=== PATIENT | male | born 1940 | race Caucasian/White ===

== ENCOUNTER 2017-03-20 20:44 | Observation (INO) | payer MEDICARE, OTHER ==
--- NOTE | ~2017-03-20 | DS ---
Discharge Summary [facility] [address] [place]. [address] NAME: HENRIK MANZO : 40 STATUS : DIS Ielana PAT#: [id number] AGE: 76 ADM/REG DATE : 03/20/17 MR#: [id number] REPORT SERV DATE: 03/23/17 DICTATED BY: DATE: REPORT STATUS : Draft TRANSCRIBED BY: MODL DATE: 03/21/17 ADMISSION DATE: 03/20/2017 DISCHARGE DATE: 03/21/2017 The patient was admitted to the [facility]. CONSULTANTS: Dr. Jane Seo. DISCHARGE DIAGNOSES: 1. 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 Possibly due to trauma. 2. Fall with head trauma several weeks ago. No evidence of acute CVA, bleed, mass, etc. 3. Hypertension, controlled. 4. History of cardiac ablation. 5. History of left carotid endarterectomy. 6. History of hyperthyroidism, status post ablation and subsequent hypothyroidism, on replacement. 7. Remote history of tobacco. 8. Pancytopenia with macrocytosis, for outpatient followup. IMAGING: Included: 1. A brain CT without contrast on 03/20 for diplopia, showing unremarkable noncontrast head CT with no acute intracranial pathology. 2. MRI of the brain without contrast shows no evidence of acute vascular injury. Evidence of mild amount of nonspecific gliosis in the right and left centrum semiovale. Atrophy pattern identified, which is stable. Empty sella incidentally noted. Nothing seen to suggest aneurysm or mass in the sella or compression of the exiting nerves and the optic canals, suprasellar space at the chiasm, or optic tracts to explain diplopia. 3. MRA of the head without contrast, 03/21, atherosclerotic changes present in the carotid siphons, but no evidence of aneurysm or luminal stenosis. 4. Carotid artery Dopplers on 03/21 shows finding compatible with category 1 disease involving cervical portions of right and left internal carotid arteries. Vertebral arteries patent with antegrade flow. PERTINENT LABORATORIES: Pancytopenia noted with white blood cell count 3.4, hemoglobin 11.3, hematocrit 33, platelets 134. Creatinine values ranging from 1.2 to 1.4. B12 of 338. Troponin times multiple was normal. Folate 7.2. TSH 0.903. Hemoglobin A1c 5.3. BRIEF HISTORY: For full details, please see the previously dictated history of present illness by Dr. Ani Tobar. This is a 76-year-old white male, who presented to the emergency department with double vision for several weeks. In the beginning of March, he fell out of bed during a nightmare and three days after this, developed double vision. At that time, he came to the ER, where a CT of the brain was done, which was unremarkable, but his symptoms were not improving, so he saw his title examiner, Dr. De Guzman. His impression was that the double vision was not related to the eye and so referred him to see primary care physician, Dr. Gabriela Izquierdo, who recommended that the patient have an outpatient MRI as Discharge Summary [address] [address] NAME: HENRIK MANZO : 40 STATUS : DIS Ileana PAT#: [id number] AGE: 76 ADM/REG DATE : 03/20/17 MR#: [id number] REPORT SERV DATE: 03/23/17 DICTATED BY: DATE: REPORT STATUS : Draft TRANSCRIBED BY: MODL DATE: 03/21/17 well as bilateral carotid ultrasound. Both were scheduled for next week, but the patient reported that he had worsening of his diplopia to the point that he could not walk because of difficulties with perception, and so the patient came to the emergency department for evaluation and admission. HOSPITAL COURSE: The patient was admitted to [address] [place] [address], and labs were obtained to evaluate for cause of possible cranial nerve palsy. He also was sent for an MRI and MRA of the brain as well as carotid ultrasounds in order to attempt to determine the etiology of the patient's symptoms. There was no evidence of a mass or any type of aneurysm or traumatic sequelae noted on carotid Dopplers or MRI/MRA of the brain and neck. The patient was seen by Neurology, whose impression was that most likely diagnosis is a cranial nerve 3 versus 4 palsy, possibly related to the head trauma sustained in early March. No other causes for cranial nerve palsy could be identified this admission. The patient is recommended to try an eye patch to assist with mobility and to follow up with his title examiner for prism glasses. Other chronic medical issues were stable this admission. DISCHARGE DISPOSITION: To home with supportive family. The patient should exercise fall precautions and should not drive currently. He has no specific dietary restrictions. He will need to follow up with title examiner, Dr. De Guzman, within the week and will need to see his primary care provider, Dr. Gabriela Izquierdo within the next one to two weeks for hospital followup appointment. DISCHARGE MEDICATIONS: 1. Eliquis 5 mg p.o. twice a day. 2. Coenzyme Q10, 100 mg p.o. q.h.s. 3. Colace 100 mg p.o. q.a.m. 4. Zantac 300 mg p.o. twice a day. 5. Levothyroxine 150 mcg p.o. q.a.m. 6. Klor-Con 10 mEq p.o. q.a.m. 7. Simvastatin 40 mg p.o. q.h.s. 8. Sublingual nitroglycerin 0.4 mg as needed for chest pain. 9. Lisinopril/HCTZ 10/12.5 mg one tablet p.o. q.a.m. Twenty-five minutes was spent in completion of this observation discharge. [facility]/MARITZA Jose Batista M.D. Discharge Summary [address] [address] NAME: HENRIK MANZO : 40 STATUS : DIS Ileana PAT#: [id number] AGE: 76 ADM/REG DATE : 03/20/17 MR#: [id number] REPORT SERV DATE: 03/23/17 DICTATED BY: DATE: REPORT STATUS : Draft TRANSCRIBED BY: MARITZA DATE: 03/21/17 / [id number] CC: Ray Yates Lisa M Aaron Thompson, JELANI
--- NOTE | ~2017-03-20 | CN ---
Consultation Report [facility] [address] [place]. [address] NAME: HENRIK MANZO : 40 STATUS : ADM Ileana PAT#: [id number] AGE: 76 ADM/REG DATE : 03/20/17 MR#: [id number] REPORT SERV DATE: 03/21/17 DICTATED BY: DATE: REPORT STATUS : Draft TRANSCRIBED BY: MODL DATE: 03/21/17 NEUROLOGY CONSULTATION DATE OF CONSULTATION: 03/21/2017 REASON FOR CONSULT: Diplopia. HISTORY OF PRESENT ILLNESS: This is a 76-year-old male, presented to [facility] on 03/20/2017, secondary to double vision, appeared to be worse on 03/20/2017, with some photosensitivity. The patient reports that the symptom has been ongoing for the past three weeks after falling out of the bed, secondary to a nightmare. The patient reports that the symptoms started about two to three days after the head trauma, but otherwise denies any dysarthria, dysphagia, language difficulties, or focal weakness. The patient reports that the symptom has persisted and reports the symptom to be constant. It can be improved with particular head movement as well as closing one eye. He reports that the diplopia resolved after closing one eye, but returns when patient opens both eyes. The patient denies any particular worsening of diplopia with movement of eyes just toward the either direction. Reports double vision appeared to be skewed. Otherwise, denies any difficulties with vision acuity. The patient was previously evaluated by Dr. De Guzman, [employer] fscm developer, who denies any ocular issues. The patient denies similar events prior to the fall and reports after onset of diplopia, the patient has experienced vertical type of symptoms especially while sitting in the car, as well as difficulty ambulating, secondary to dizzy vertical type of sensation, as well as diplopia. The patient denies recent illness, fever, chills, nausea, vomiting, chest pain, or shortness of breath and denies any other changes in medication. REVIEW OF SYSTEMS: The patient's review of systems are otherwise negative except for those mentioned in the HPI. PAST MEDICAL HISTORY: Significant for hypertension, cardiac ablation for history of arrhythmia, the patient does have a history of left carotid endarterectomy, secondary to previous 94% blockage in the carotid artery, as well as history of previous hyperthyroidism treated with thyroid iodine ablation and is currently on Synthroid, the patient does have a history of hypertension. No previous stroke or heart attacks. No previous history of diplopia prior to fall. No recent history of a respiratory distress or illness. ALLERGIES: THE PATIENT REPORTS ALLERGY TO PENICILLIN. HOME MEDICATIONS: Eliquis, Coenzyme Q10, Colace, Synthroid, lisinopril, hydrochlorothiazide, nitroglycerin, potassium, Zantac, and Zocor. SOCIAL HISTORY: The patient denies current tobacco, alcohol, or recreational drug usage. The patient quit smoking in 1980. Consultation Report [place] [id number] [place]. [address] NAME: HENRIK MANZO : 40 STATUS : ADM Ilaena PAT#: [id number] AGE: 76 ADM/REG DATE : 03/20/17 MR#: [id number] REPORT SERV DATE: 03/21/17 DICTATED BY: DATE: REPORT STATUS : Draft TRANSCRIBED BY: MARITZA DATE: 03/21/17 REVIEW OF SYSTEMS: Again, review of systems negative except for those mentioned in the HPI. FAMILY HISTORY: No reported family history of a diplopia was otherwise noted. PHYSICAL EXAMINATION: VITAL SIGNS: The patient was noted to have vital signs with T-max of 97.7, heart rate of 50 to 66, respirations of 16 to 18, and blood pressure of 126 to 156/62 to 70. GENERAL: The patient is well-developed, well-nourished, in no acute distress. CARDIOVASCULAR: Regular rate and rhythm. No carotid bruits were otherwise auscultated. PULMONARY: Clear to auscultation bilaterally. NEUROLOGIC: Generally, the patient is alert, oriented to person, place, year, and month. Follows simple and 2-step commands. No dysarthria. No aphasia. Intact registration and recall. Cranial nerves 2 through 12, pupils equal, round, and reactive to light. The patient was noted to have intact horizontal eye movement. No nystagmus was seen. No clear dysconjugate gaze was noted with vertical eye movement. At time of evaluation, the patient denies any worsening of diplopia with either direction, but appeared to be slightly worse toward the left on examination. The patient otherwise was noted to have symmetrical facial expression. Sensation midline. Tongue normal. Normal palatal movement. Mild decreased hearing in bilateral ears. 5/5 bilateral upper and lower extremity strength. Normal muscle, bulk, and tone. Deep tendon reflex was otherwise 2+ throughout. Upgoing toe on bilateral plantar reflexes. Normal [id number] examination without ataxia. The patient does demonstrate unsteady gait at the time of evaluation, but normal station. LABORATORY STUDIES: Demonstrated white blood cell count of 3.0, hemoglobin of 11.3, hematocrit of 33.0, platelet count of 134. Chemistry panel; sodium 140, potassium 4.1, chloride 107, bicarb of 28, BUN of 18, creatinine 1.06, glucose of 98, calcium of 8.4, magnesium 2.4, folate of 7.3, vitamin B12 of 338, hemoglobin A1c of 5.3, and serum TSH of 0.903. CT scan of the brain otherwise demonstrated no acute process, with MRI pending. IMPRESSION: Diplopia, with symptom ongoing for three weeks, constant, occur several days after a fall. The patient denies any other focal deficits, and no other focal deficit was noted on examination. No clear dysconjugate gaze was noted. Concern for possible subtle cranial 4 nerve versus cranial nerve 3 palsy. At this time, differential diagnosis includes possible brain stem stroke after a fall or peripheral nerve damage, secondary to trauma or concussion versus possible metabolic issues. We will check MRI of the brain with special attention to orbits as well as cavernous sinus. We will also check MRA of the brain. We will obtain laboratory study. May consider eye patch for symptom treatment. RECOMMENDATION: 1. MRI of the brain without contrast with special cuts to orbits as well as cavernous sinus. 2. MRA of the brain. 3. Thiamin myasthenia gravis panel. 4. Thiamine 100 mg p.o. daily. Consultation Report [place] [address] [place]. [address] NAME: HENRIK MANZO Sandip : 40 STATUS : ADM Ileana PAT#: [id number] AGE: 76 ADM/REG DATE : 03/20/17 MR#: [id number] REPORT SERV DATE: 03/21/17 DICTATED BY: DATE: REPORT STATUS : Draft TRANSCRIBED BY: MARITZA DATE: 03/21/17 5. Consider eye patch. [facility]/MARITZA Santy Cho MD / [id number] CC: Ray Yates LISA M *
--- NOTE | ~2017-03-20 | HP ---
History And Physical [place] [id number] [facility] [place]. [address] NAME: HENRIK MANZO : 40 STATUS : ADM Ileana PAT#: [id number] AGE: 76 ADM/REG DATE : 03/20/17 MR#: [id number] REPORT SERV DATE: 03/21/17 DICTATED BY: SERG LYNNE DATE: 03/20/17 REPORT STATUS : Draft TRANSCRIBED BY: MODL DATE: 03/20/17 DATE OF ADMISSION: 03/20/2017 HISTORY OF PRESENT ILLNESS: The patient is very pleasant 76-year-old male, who presented to [facility] because of warning double vision/diplopia. The patient reported that in the beginning of March three weeks ago he fell out of bed and three days after his fall, he developed double vision. He said that at that time, he came to the [facility] Emergency Room, had CT of the brain done, and we have it in the computer on 03/06/2017 which was unremarkable but since three days later he developed double vision, and it was not improving. He went and saw his ophthalmologic last week. It was Dr. De Guzman and he checked his vision, and he informed the patient that his double vision is not related to his eye. He referred him to his primary care physician Dr. Gabriela Izquierdo who evaluated the patient, and she recommended the patient to have an MRI as well as bilateral carotid ultrasound, but they both were scheduled for next week, and the patient reported that yesterday he had a worsening of his diplopia to the point that he could not walk because the diplopia was making him difficult to keep him in balance. Basically, the patient says that the visual acuity is normal when he is closing one of his eyes but when he is trying to see with both eyes, he has extreme severe double vision. He said that with these double vision and eye straining, he is having some headache but this is not significant. He denies any chest pain. No shortness of breath. No fever. No rash. No abdominal pain. No constipation or diarrhea. REVIEW OF SYSTEMS: All 14-point review of system done and negative except what is stated in the history of present illness. PAST MEDICAL HISTORY: The patient has hypertension, history of cardiac ablation for arrhythmia. He cannot specify what type of arrhythmia he had. History of left carotid endarterectomy because he had 94% blockage in the carotid artery. History of hyperthyroidism treated with thyroid iodine ablation, and since that time, he is hypothyroid. He is on Synthroid. Hypertension. The patient denies any history of strokes. No history of heart attacks. ALLERGIES: HE IS ALLERGIC TO PENICILLIN. HOME MEDICATIONS: Include Eliquis 5 mg p.o. b.i.d., Coenzyme Q 100 mg daily, Colace 100 mg daily, levothyroxine 150 mcg daily, lisinopril with hydrochlorothiazide 10/12.5 daily, nitroglycerin 0.4 mg sublingually as needed for chest pain, potassium chloride 10 mEq p.o. daily, Zantac 300 mg p.o. b.i.d., and simvastatin 40 mg daily. SOCIAL HISTORY: The patient is former smoker. He quit smoking in 1980, used to smoke three packs per day. No alcohol. No recreational drug use. Lives by himself. His daughter and grandson at the bedside. Mother of a cancer. Father of heart problems. PHYSICAL EXAMINATION: GENERAL: A well-nourished, well-developed male, not in acute distress. Resting quietly. History And Physical [address] [address] NAME: HENRIK MANZO : 40 STATUS : ADM Ileana [facility]#: [id number] AGE: 76 ADM/REG DATE : 03/20/17 MR#: [id number] REPORT SERV DATE: 03/21/17 DICTATED BY: SERG LYNNE DATE: 03/20/17 REPORT STATUS : Draft TRANSCRIBED BY: MARITZA DATE: 03/20/17 VITAL SIGNS: Blood pressure 136/63, temperature 97.4, heart rate 82, respiratory rate 16, and oxygen saturation 97% on room air. HEENT: Head atraumatic, normocephalic. Conjunctivae clear. Pupils are equal and reactive to light and accommodation. Extraocular muscles are intact. NECK: Neck is supple. Trachea is midline. No supraclavicular or cervical lymphadenopathy. LUNGS: Clear to auscultation bilaterally with normal respiratory effort. CARDIOVASCULAR SYSTEM: Regular rate and rhythm. Point of maximal impulse not displaced. ABDOMEN: Soft, nontender, nondistended. Positive normoactive bowel sounds. EXTREMITIES: No clubbing, cyanosis. No edema. SKIN: Normal color and turgor. NEUROLOGIC: Muscle strength is 5/5 bilaterally on upper and lower extremities. Cranial nerves 3-12 are grossly intact. Sensations are intact bilaterally on upper and lower extremities and on the face. LABORATORY RESULTS: Sodium 139, potassium 4.1, chloride 105, carbon dioxide 28, BUN 24, creatinine 1.44, blood sugar 103, magnesium 2.3. Troponin less than 0.02. White count 3.4, hemoglobin 12.1, hematocrit 34.5, MCV 100.3, platelet count 153, PT 15, INR 1.2. CT of the brain without contrast, showing unremarkable noncontrast CT of the head, no acute intracranial pathology. EKG showed sinus bradycardia with a rate of 57, low voltage QRS, cannot rule out inferior infarction of indeterminate age. ASSESSMENT AND PLAN: This is very pleasant 76-year-old male with a past medical history of hypothyroidism, history of cardiac ablation for arrhythmia as well as history of carotid endarterectomy presented with diplopia that started after recent fall. 1. We will put the patient under observation. Since his diplopia is worsening, I will order MRI of the brain with attention to the brain steam and orbits as well as we will consult neurologist for diplopia. 2. Regarding his hypothyroidism, we will check his TSH. 3. Regarding is mild prerenal azotemia, his creatinine 1.44, BUN 24, likely secondary to dehydration. We will hold his lisinopril with hydrochlorothiazide. He already received normal saline bolus in the emergency room. We will recheck his creatinine tomorrow. 4. He has also anemia with elevated MCV. We will check his serum B12 and folate level and in the same time, we will consult Neurology. The patient will be kept under observation. An MRI will be done. 5. Also CT of the head without contrast is unremarkable. 6. Low voltage QRS. We will check echocardiogram on this patient for low voltage QRS, and also continue telemetry strip to check if there is any arrhythmia. My partner will see this patient starting tomorrow morning. MG/MODL History And Physical [address] [facility] [address] NAME: HENRIK MANZO : 40 STATUS : ADM Ileana PAT#: [id number] AGE: 76 ADM/REG DATE : 03/20/17 MR#: [id number] REPORT SERV DATE: 03/21/17 DICTATED BY: SERG LYNNE DATE: 03/20/17 REPORT STATUS : Draft TRANSCRIBED BY: MODMejia DATE: 03/20/17 Serg Lynne M.D. / [id number] CC: Ray Yates
[2017-03-20 20:04] LABS: BASOPHILS 0 %; EOSINOPHILS 0 %; HEMATOCRIT 34.5 % (40.0-51.0); HEMOGLOBIN 12.1 g/dL (13.6-17.8); IMMATURE GRANULOCYTES 0.6 %; IMMATURE GRANULOCYTES ABSOLUTE 0.02 10/3/uL (0.0-0.11); LYMPHOCYTES 54.2 %; LYMPHOCYTES ABSOLUTE 1.86 10/3/uL (0.67-4.30); MANUAL DIFF NO %; MEAN CORPUS HGB CONC 35.1 g/dL (32.0-36.0); MEAN CORPUSCULAR HEMOGLOB 35.2 pg (26.0-34.0); MEAN CORPUSCULAR VOLUME 100.3 fL (80-100); MEAN PLATELET VOLUME 9.9 fL (9.2-13.0); MONOCYTES 9.9 %; MONOCYTES ABSOLUTE 0.34 10/3/uL (0.21-1.20); NEUTROPHILS 35.3 %; NEUTROPHILS ABSOLUTE 1.21 10/3/uL (2.02-8.40); PLATELET COUNT 153 10/3/uL (150-400); RBC DISTRIBUTION WIDTH 14.2 % (12.0-16.0); RED CELL COUNT 3.44 10/6/uL (4.7-6.1); WHITE BLOOD CELLS 3.4 10/3/uL (4.5-10.5)
[2017-03-20 20:13] LABS: INTERNATIONAL NORMAL RATI 1.2 UNITS (-); PARTIAL THROMBO TIME 35.7 SEC (22.5-37.2)
[2017-03-20 20:21] LABS: CALCIUM, SERUM 8.7 MG/DL (8.5-10.4); CHEST PAIN PROFILE TAT 0 Hrs 21 Mins; CHLORIDE, SERUM 105 MMOL/L (96-112); CO2 (CARBON DIOXIDE) 28 MMOL/L (24-34); CREATININE 1.44 MG/DL (0.70-1.30); GFR AFRICAN AMERICAN 54 ML/MIN (>=60); GFR NON AFRICAN AMERICAN 47 ML/MIN (>=60); GLUCOSE, SERUM 103 MG/DL (60-99); POTASSIUM, SERUM 4.1 MMOL/L (3.5-5.3); SODIUM, SERUM 139 MMOL/L (135-148); TROPONIN I <0.02 NG/ML (<0.05)
[2017-03-20 20:22] LABS: BUN (BLOOD UREA NITROGEN) 24 MG/DL (6-23)
[2017-03-20] MEDS ORDERED: SYN.15 PO (21:48)
[2017-03-20] MEDS ORDERED: DSS PO (21:49)
[2017-03-20] MEDS ORDERED: ELIQUIS 5 MG TAB5 MG PO (21:49)
[2017-03-20] MEDS ORDERED: ZOCOR40 PO (21:49)
[2017-03-20] MEDS ORDERED: KLOR-CON 1010 MEQ PO (21:49)
[2017-03-20] MEDS ORDERED: NITROSTAT0.4 MG SL (21:49)
[2017-03-20] MEDS ORDERED: ZANTAC300 MG PO (21:50)
[2017-03-20] MEDS ORDERED: CO Q-10100 MG PO (21:50)
[2017-03-20] MEDS ORDERED: PRINZIDE1 TAB PO (21:50)
[2017-03-21 06:11] LABS: HEMOGLOBIN 11.3 g/dL (13.6-17.8); MEAN CORPUS HGB CONC 34.2 g/dL (32.0-36.0); MEAN CORPUSCULAR HEMOGLOB 34.6 pg (26.0-34.0); MEAN CORPUSCULAR VOLUME 100.9 fL (80-100); MEAN PLATELET VOLUME 9.3 fL (9.2-13.0); PLATELET COUNT 134 10/3/uL (150-400); RBC DISTRIBUTION WIDTH 14.1 % (12.0-16.0); RED CELL COUNT 3.27 10/6/uL (4.7-6.1)
[2017-03-21 06:14] LABS: MANUAL DIFF YES %
[2017-03-21 06:52] LABS: BUN (BLOOD UREA NITROGEN) 18 MG/DL (6-23); CALCIUM, SERUM 8.4 MG/DL (8.5-10.4); CHLORIDE, SERUM 107 MMOL/L (96-112); CO2 (CARBON DIOXIDE) 28 MMOL/L (24-34); CREATININE 1.06 MG/DL (0.70-1.30); FOLATE 7.2 NG/ML (>5.2); GFR AFRICAN AMERICAN 79 ML/MIN (>=60); GFR NON AFRICAN AMERICAN 68 ML/MIN (>=60); GLUCOSE, SERUM 98 MG/DL (60-99); POTASSIUM, SERUM 4.1 MMOL/L (3.5-5.3); SODIUM, SERUM 140 MMOL/L (135-148); TROPONIN I <0.02 NG/ML (<0.05); ULTRASENSITIVE TSH 0.903 MCIU/ML (0.358-3.740)
[2017-03-21 07:44] LABS: BAND NEUTROPHILS 2 %; ELLIPTOCYTES 1+ (3-10/OIF) (0-2/OIF); EOSINOPHILS 3 %; EOSINOPHILS ABSOLUTE (CALC) 0.09 10/3/uL (0.0-0.53); LYMPHOCYTES 57 %; LYMPHOCYTES ABSOLUTE (CALC) 1.71 10/3/uL (0.67-4.30); MONOCYTES 11 %; MONOCYTES ABSOLUTE (CALC) 0.33 10/3/uL (0.21-1.20); NEUTROPHILS ABSOLUTE (CALC) 0.87 10/3/uL (2.02-8.40); PLATELET ESTIMATE DEC (ADEQUATE); SEGMENTED NEUTROPHIL (0) 27 %; TOTAL NUCLEATED CELLS 100
[2017-03-21 07:45] LABS: TEARDROP SHAPED RBCS OCC (0-2/OIF)
[2017-03-26 20:35] LABS: THIAMINE 4.6 nmol/L (()); THIAMINE MONOPHOSPHATE 2.4 nmol/L (())
[2017-03-28 04:14] LABS: ACETYLCHOLINE REC BINDING AB <0.30 nmol/L (<0.31); ACETYLCHOLINE RECEPT BLOCK AB <15 % (<15); ACETYLCHOLINE RECEPTOR MOD AB 3 % (<32); STRIATED MUSCLE ANTIBODY Negative (NEG); STRIATED MUSCLE ANTIBODY TITER ND
== END 2017-03-21 19:27 | disposition home or self-care (01) ==
LOC: ER 20:44 → 7NO 23:16
PROVIDERS: Emergency Medicine; Hospitalist; Psychiatry & Neurology Neurology
DX: H53.2 Diplopia (principal); I10 Essential (primary) hypertension; D61.818 Other pancytopenia; Z87.891 Personal history of nicotine dependence; Z79.899 Other long term (current) drug therapy; Z88.0 Allergy status to penicillin; Z98.890 Other specified postprocedural states
CPT/HCPCS: 70450; 70544; 70551; 80048; 82607; 82746; 83036; 83519; 83519-59; 83735; 84425; 84443; 84484; 85025; 85610; 85730; 86255; 93005; 93306; 93880; 99285; A9270-GY; G0378